=== PATIENT | female | born 1955 | race Caucasian/White ===

== ENCOUNTER 2016-10-16 08:30 | Outpatient (RCR) | payer OTHER ==
[~2016-10-16 08:30] MED LIST: ALEVE 220MG220 MG PO; ZANTAC 7575 MG PO; ZYRTEC 10MG10 MG PO
== END 2016-11-05 | disposition home or self-care (01) ==
LOC: WSPT
DX: M54.5 Low back pain (principal)

== ENCOUNTER 2017-02-06 09:45 | Outpatient (RCR) | payer OTHER | END 2017-02-07 | disposition home or self-care (01) | LOC: WSPT | DX: M54.5 Low back pain (principal) ==

== ENCOUNTER 2017-02-15 10:00 | Outpatient (RCR) | payer OTHER | END 2017-03-21 08:26 | disposition home or self-care (01) | LOC: WSPT 10:00 | DX: M54.5 Low back pain (principal) ==

== ENCOUNTER → 2018-01-08 | Outpatient (RCR) | payer OTHER | END | disposition home or self-care (01) | LOC: WSPT | DX: M25.552 Pain in left hip (principal) ==

== ENCOUNTER 2018-02-11 15:30 | Outpatient (RCR) | payer OTHER | END 2018-02-19 07:57 | disposition home or self-care (01) | LOC: WSPT 15:30 | DX: M25.552 Pain in left hip (principal) ==